=== PATIENT | female | born 1990 | race Caucasian/White ===

== ENCOUNTER 2016-04-17 14:47 | Emergency (ER) | END 2016-04-17 17:53 | disposition home or self-care (01) | DX: R11.10 Vomiting, unspecified (principal); Z33.1 Pregnant state, incidental | CPT/HCPCS: 81003; Z7502; Z7610 ==

== ENCOUNTER 2016-04-27 10:12 | Emergency (ER) | payer OTHER ==
[~2016-04-27] VITALS: Wt 63.5 kg
[~2016-04-27 10:12] MED LIST: METO10TA92 PO; OMEP20CA9 PO; PRENAT PO
[2016-04-27] MEDS ORDERED: METOCLOPRAMIDE 10 MG TAB PO ONE (11:00)
[2016-04-27 11:30] LABS: URINE BLOOD (Dip) POC Negative (NEGATIVE)
--- NOTE | 2016-04-27 11:50 | RADRPT ---
PROCEDURE: US Pelvis/OB. CLINICAL INDICATION: Pelvic pain TECHNIQUE: Multiple sonographic images of the pelvis were obtained utilizing a transabdominal and endovaginal technique. The images were reviewed on a PACS workstation. COMPARISON: None. FINDINGS: There is a small cystic structure within the endometrium measuring 1.6 cm which would correspond to a calculated gestational age of 6 weeks and 2 days. No pole is yet visualized. There is a yolk sac visualized. The ovaries are normal. No abnormal adnexal masses are present. The right ovary measures 2.7 x 1.6 x 2.1 cm. The left ovary measures 3.8 x 2.2 x 3.1 cm. There is a 2 cm corpus luteum cyst in the left ovary. No significant free fluid is present within the pelvis. RPTAT: AA IMPRESSION: Possible early intrauterine at 6 weeks and 2 days. No pole is yet identified. Close followup ultrasound and hCG is recommended. Left ovarian corpus luteum cyst. .Rodolfo Ely MD, MD Date Time Electronically viewed and signed by .Rodolfo Ely MD, on 04/27/2016 11:50 .S/
[2016-04-27 12:09] LABS: BASOPHILS % 0.2 % (0.0-2.0); EOSINOPHILS % 0.3 % (0.0-7.0); HEMATOCRIT 42.3 % (37.0-47.0); HEMOGLOBIN 14.3 g/dl (12.0-16.0); LYMPHOCYTES # 1.7 10^3/ul (0.8-2.9); MEAN CORPUSCULAR HEMOGLOBIN 30.8 pg (29.0-33.0); MEAN CORPUSCULAR HGB CONC 33.8 g/dl (32.0-37.0); MEAN CORPUSCULAR VOLUME 91.1 fl (82.0-101.0); MEAN PLATELET VOLUME 9.4 fl (7.4-10.4); MONOCYTE # 0.8 10^3/ul (0.3-0.9); MONOCYTES % 7.4 % (0.0-11.0); NEUTROPHIL # 8.2 10^3/ul (1.6-7.5); NEUTROPHILS % 76.1 % (39.0-77.0); PLATELET COUNT 206 10^3/UL (140-440); RED BLOOD COUNT 4.65 10^6/ul (4.20-5.40); RED CELL DISTRIBUTION WIDTH 12.9 % (11.5-14.5); UNCORRECTED WBC 10.8 10^3/ul (4.8-10.8); WHITE BLOOD COUNT 10.8 10^3/ul (4.8-10.8)
[2016-04-27 12:14] LABS: CONDITION 1
[2016-04-27] MEDS ORDERED: METO10TA92 PO (12:55)
[2016-04-27] MEDS ORDERED: CEPH-443 PO (12:55)
--- NOTE | 2016-04-27 13:00 | ERD ---
ER Documentation Chief Complaint Date/Time DATE: 04/27/16 TIME: 12:57 Chief Complaint lower abdominal pain with dysuria but no vag bleeed. 8 wks preg. nausea HPI Patient is a 26-year-old female who is approximately 8 weeks complaining of lower pelvic pain that is 8 out of 10 and intermittent. She also admits to dysuria and increased urinary frequency. She denies any hematuria or vaginal bleeding. She does admit to nausea but no vomiting. Denies fever. She has not yet had any OB care but does have an upcoming appointment. She is taking vitamins. ROS All systems reviewed and are negative except as per history of present illness. Medications Home Meds Active Scripts Metoclopramide* (Reglan*) 10 Mg Tablet, 10 MG PO Q6 Y for NAUSEA AND/OR VOMITING , #15 TAB Prov:SCOTTIE POTTS PA-C 04/27/16 Cephalexin* (Keflex*) 500 Mg Capsule, 500 MG PO BID for 5 Days, CAP Prov:SCOTTIE POTTS PA-C 04/27/16 Multivit/Min/Fol Ac/Iron/Pren* ( S*) 1 Tab Tab, 1 TAB PO DAILY, #90 TAB Prov:ZEINA MENA MD 04/17/16 Metoclopramide* (Reglan*) 10 Mg Tablet, 10 MG PO Q6 Y for NAUSEA AND/OR VOMITING , #15 TAB Prov:ZEINA MENA MD 04/17/16 Omeprazole* (Prilosec*) 20 Mg Capsule.dr, 20 MG PO BID for 20 Days, CAP Prov:MARIZA LEBRON NP 08/19/15 Allergies Allergies: Coded Allergies: No Known Allergy (Unverified , 04/17/16) PMhx/Soc History of Surgery: No Anesthesia Reaction: No Hx Neurological Disorder: No Hx Respiratory Disorders: No Hx Cardiac Disorders: No Hx Psychiatric Problems: No Hx Miscellaneous Medical Probl: No Hx Alcohol Use: No Hx Substance Use: No Hx Tobacco Use: No Smoking Status: Never smoker FmHx Family History: No diabetes Physical Exam Vitals Vital Signs Date Time Temp Pulse Resp B/P Pulse Ox O2 Delivery O2 Flow Rate FiO2 04/27/16 10:26 98.6 86 20 140/85 99 Physical Exam General: well developed, well nourished, alert, nontoxic, no distress Head: normocephalic, atraumatic Neck: Supple, nontender, no lymphadenopathy, no midline tenderness Respiratory: Clear to auscaultation bilaterally, speaks in full sentences, no use of accesory muscles or labored breathing, no rales, ronchi, or wheezing Cardiovascular: RRR, No murmurs GI: soft, non tender, non distended, negative murphys sign, negative mcburneys point tenderness, no cva tenderness bilaterally, no rebound or guarding Back: no midline tenderness, no step offs or bony abnormalities, sensation to light touch in tact Result Diagram: 04/27/16 1145 Results 24 hrs Laboratory Tests Test 04/27/16 11:32 04/27/16 11:45 Bedside Urine Blood Negative Bedside Urine Glucose (UA) Negative Bedside Urine Ketones (LAB) Negative Bedside Urine Leukocyte Esterase (L Negative Bedside Urine Nitrite (LAB) Negative Bedside Urine Protein (LAB) Trace Bedside Urine pH (LAB) 7.5 Basophils # 0.010^3/ul Basophils % 0.2% Eosinophils # 0.010^3/ul Eosinophils % 0.3% Hematocrit 42.3% Hemoglobin 14.3g/dl Lymphocytes # 1.710^3/ul Lymphocytes % 16.0% Mean Corpuscular Hemoglobin 30.8pg Mean Corpuscular Hemoglobin Concent 33.8g/dl Mean Corpuscular Volume 91.1fl Mean Platelet Volume 9.4fl Monocytes # 0.810^3/ul Monocytes % 7.4% Neutrophils # 8.210^3/ul Neutrophils % 76.1% Nucleated Red Blood Cells # 0.010^3/ul Nucleated Red Blood Cells % 0.0/100WBC Platelet Count 93349^3/UL Red Blood Count 4.6510^6/ul Red Cell Distribution Width 12.9% White Blood Count 10.810^3/ul Current Medications Medications (Trade) Dose Ordered Sig/Bindu Route PRN Reason Start Time Stop Time Status Last Admin Dose Admin Metoclopramide HCl (Reglan) 10 mg ONCE ONCE PO 04/27/16 11:00 04/27/16 11:02 DC 04/27/16 12:02 Procedures/MDM Patient is 26-year-old female who is for the first time and has dysuria and lower abdominal pain. Her vital signs are all within normal limits and she is well-appearing in no distress. Patient's workup is unremarkable and her urine is negative for infection however given she is symptomatic I will still treat her with Keflex for 5 days. Ultrasound showed possible early intrauterine about 6 weeks and 2 days no pole is yet identified and close follow-up with ultrasound and hCG correlation is recommended. Patient was given copies of her labs and ultrasound reports she can follow primary care doctor and recommended she return in 2-3 days for follow-up examination as ectopic cannot fully be excluded at this time. She is discharged with Reglan and Keflex. Recommended this patient follow up with her primary care doctor within 48 hours or return to the emergency room for any worsening of symptoms. However this time I do believe there is suitable for outpatient management. I answered all their questions and they agreed with the plan and were discharged home. Departure Diagnosis: Primary Impression: Dysuria Additional Impression: Pelvic pain affecting Condition: Stable Patient Instructions: Dysuria, , Established, Normal Symptoms Additional Instructions: Call your primary care doctor TOMORROW for an appointment during the next 1-2 days.See the doctor sooner or return here if your condition worsens before your appointment time. SCOTTIE POTTS PA-C Apr 27, 2016 13:00
== END 2016-04-27 13:22 | disposition home or self-care (01) ==
LOC: FTE 10:12
DX: O26.891 Other specified pregnancy related conditions, first trimester (principal); O99.89 Other specified diseases and conditions complicating pregnancy, childbirth and the puerperium; R30.0 Dysuria; R10.2 Pelvic and perineal pain; Z3A.01 Less than 8 weeks gestation of pregnancy
CPT/HCPCS: 36415; 76801; 76817; 81003; 84702; 85025; 86900; 86901; Z7502; Z7610

== ENCOUNTER 2016-07-23 19:52 | Emergency (ER) | payer OTHER ==
[~2016-07-23] VITALS: Ht 170.2 cm; Wt 63.8 kg
[~2016-07-23 19:52] MED LIST changes: +CEPH-443 PO
[2016-07-23 20:57] VITALS: Ht 170.2 cm; Wt 63.8 kg
[2016-07-23] MEDS ORDERED: ACETAMINOPHEN 500 MG TAB PO STA (23:13)
[2016-07-23 23:50] LABS: ADD SCAN DIFF NO
[2016-07-23 23:51] LABS: BASOPHILS % 0.3 % (0.0-2.0); EOSINOPHILS # 0.1 10^3/ul (0.0-0.5); EOSINOPHILS % 0.9 % (0.0-7.0); HEMATOCRIT 36.3 % (37.0-47.0); HEMOGLOBIN 12.5 g/dl (12.0-16.0); LYMPHOCYTES # 2.3 10^3/ul (0.8-2.9); LYMPHOCYTES % 17.3 % (15.0-51.0); MEAN CORPUSCULAR HEMOGLOBIN 31.2 pg (29.0-33.0); MEAN CORPUSCULAR HGB CONC 34.4 g/dl (32.0-37.0); MEAN CORPUSCULAR VOLUME 90.5 fl (82.0-101.0); MONOCYTE # 0.7 10^3/ul (0.3-0.9); MONOCYTES % 5.1 % (0.0-11.0); NEUTROPHIL # 10.2 10^3/ul (1.6-7.5); NEUTROPHILS % 75.9 % (39.0-77.0); PLATELET COUNT 211 10^3/UL (140-415); RED BLOOD COUNT 4.01 10^6/ul (4.20-5.40); WHITE BLOOD COUNT 13.5 10^3/ul (4.8-10.8)
[2016-07-24 00:10] LABS: ALBUMIN 3.9 g/dl (3.3-4.9); ALBUMIN/GLOBULIN RATIO 1.11; BILIRUBIN,INDIRECT 0.2 mg/dl (0-1.1); BILIRUBIN,TOTAL 0.2 mg/dl (0.2-1.3); CALCIUM 9.1 mg/dl (8.4-10.2); CREATININE 0.51 mg/dl (0.44-1.00); POTASSIUM 3.7 mmol/L (3.5-5.1); TOTAL PROTEIN 7.4 g/dl (6.1-8.1)
[2016-07-24 00:20] LABS: ADD UMIC YES; URINE BILIRUBIN (Dip) NEGATIVE (NEGATIVE); URINE BLOOD (Dip) NEGATIVE (NEGATIVE); URINE COLOR LT. YELLOW (YELLOW); URINE GLUCOSE (Dip) NEGATIVE (NEGATIVE); URINE KETONES (Dip) NEGATIVE (NEGATIVE); URINE LEUKOCYTE ESTERASE (Dip) 2+ (NEGATIVE); URINE NITRITE (Dip) NEGATIVE (NEGATIVE); URINE TOTAL PROTEIN (Dip) NEGATIVE (NEGATIVE); URINE UROBILINOGEN (Dip) 0.2 E.U./dL (0.1-1.0)
--- NOTE | 2016-07-24 00:30 | RADRPT ---
PROCEDURE: US OB. US OB Transabd 04/27 Tri CLINICAL INDICATION: pelvic/ AB pain TECHNIQUE: Multiple sonographic images of the pelvis were obtained. The images were reviewed on a PACS workstation. COMPARISON: No prior studies are available for comparison. FINDINGS: There is a single viable intrauterine gestation. Cardiac activity is present with 148 beats per min malina. There is a variable presentation. Measurements were made in order to determine age. The results are as follows: BPD =4.6 cm. HC =16.5 cm. AC =14.1 cm. FL =3.0 cm. Estimated gestational age of approximately 19 weeks and 3 days. The estimated date of delivery is 12/14/2016. The EFW = 287 grams . The placenta is posterior, grade 0. There is no evidence for an abruption or placenta previa. There is a normal amount of amniotic fluid with a maximum vertical pocket = 3.9 cm There are no adnexal masses. IMPRESSION: Single viable intrauterine gestation of approximately 19 weeks and 3 days. The estimated date of de livery is 12/14/2016. RPTAT: HBST . .Farzad Gutiérrez MD, Date Time Electronically viewed and signed by .Farzad Gutiérrez MD, on 07/24/2016 00:30 .T/
--- NOTE | 2016-07-24 00:42 | ERD ---
ER Documentation Chief Complaint Date/Time DATE: 07/24/16 TIME: 00:38 Chief Complaint C/O LOW BACK PAIN AND AP X4 HRS. DENIES N/V DIARRHEA +LANGFORD HPI This is a 26-year-old female who presents to the emergency department today complaining of low back pain as well as some lower abdominal pain for the past 4 hours. States that she is approximately 18 weeks . States that she does have some burning with urination. Denies any vaginal discharge, vaginal bleeding, fevers or chills, nausea or vomiting. States she has not taken any medication for the pain. Dates her last ultrasound was at the end of May. States that her provider is [facility] and has an appointment on August 07. ROS All systems reviewed and are negative except as per history of present illness. Medications Home Meds Active Scripts Nitrofurantoin Monohyd Macrocr* (Macrobid*) 100 Mg Capsr, 100 MG PO BID for 7 Days, CAP Prov:JOSE G ASHTON PA-C 07/24/16 Acetaminophen* (Tylophen*) 500 Mg Capsule, 1 CAP PO Q6H Y for PAIN AND OR ELEVATED TEMP, #30 CAP Prov:JOSE G ASHTON PA-C 07/24/16 Metoclopramide* (Reglan*) 10 Mg Tablet, 10 MG PO Q6 Y for NAUSEA AND/OR VOMITING , #15 TAB Prov:SCOTTIE POTTS PA-C 04/27/16 Cephalexin* (Keflex*) 500 Mg Capsule, 500 MG PO BID for 5 Days, CAP Prov:SCOTTIE POTTS PA-C 04/27/16 Multivit/Min/Fol Ac/Iron/Pren* ( S*) 1 Tab Tab, 1 TAB PO DAILY, #90 TAB Prov:ZEINA MENA MD 04/17/16 Metoclopramide* (Reglan*) 10 Mg Tablet, 10 MG PO Q6 Y for NAUSEA AND/OR VOMITING , #15 TAB Prov:ZEINA MENA MD 04/17/16 Omeprazole* (Prilosec*) 20 Mg Capsule.dr, 20 MG PO BID for 20 Days, CAP Prov:MARIZA LEBRON NP 08/19/15 Allergies Allergies: Coded Allergies: No Known Allergy (Unverified , 07/23/16) PMhx/Soc Medical and Surgical Hx: pt denies Medical Hx, pt denies Surgical Hx History of Surgery: No Anesthesia Reaction: No Hx Neurological Disorder: No Hx Respiratory Disorders: No Hx Cardiac Disorders: No Hx Psychiatric Problems: No Hx Miscellaneous Medical Probl: No Hx Alcohol Use: No Hx Substance Use: No Hx Tobacco Use: No Smoking Status: Never smoker Physical Exam Vitals Vital Signs Date Time Temp Pulse Resp B/P Pulse Ox O2 Delivery O2 Flow Rate FiO2 07/23/16 20:57 98.2 61 22 111/56 100 Physical Exam Const: No acute distress Head: Atraumatic Eyes: Normal Conjunctiva ENT: Normal External Ears, Nose and Mouth. Neck: Full range of motion..~ No meningismus. Resp: Clear to auscultation bilaterally Cardio: Regular rate and rhythm, no murmurs Abd: Soft, mild bilateral pelvic tenderness non distended. Normal bowel sounds no specific tenderness in the right lower quadrant or at Skin: No petechiae or rashes Back: No midline tenderness. Bilateral paraspinal tenderness. No CVA tenderness peer Ext: No cyanosis, or edema Neur: Awake and alert Psych: Normal Mood and Affect Result Diagram: 07/23/16 2339 07/23/16 2339 Results 24 hrs Laboratory Tests Test 07/23/16 23:39 07/23/16 23:46 White Blood Count 13.510^3/ul Red Blood Count 4.0110^6/ul Hemoglobin 12.5g/dl Hematocrit 36.3% Mean Corpuscular Volume 90.5fl Mean Corpuscular Hemoglobin 31.2pg Mean Corpuscular Hemoglobin Concent 34.4g/dl Red Cell Distribution Width 13.0% Platelet Count 80699^3/UL Mean Platelet Volume 11.0fl Neutrophils % 75.9% Lymphocytes % 17.3% Monocytes % 5.1% Eosinophils % 0.9% Basophils % 0.3% Nucleated Red Blood Cells % 0.0/100WBC Neutrophils # 10.210^3/ul Lymphocytes # 2.310^3/ul Monocytes # 0.710^3/ul Eosinophils # 0.110^3/ul Basophils # 0.010^3/ul Nucleated Red Blood Cells # 0.010^3/ul Sodium Level 136mmol/L Potassium Level 3.7mmol/L Chloride Level 107mmol/L Carbon Dioxide Level 24mmol/L Anion Gap 9 Blood Urea Nitrogen 5mg/dl Creatinine 0.51mg/dl Glucose Level 90mg/dl Calcium Level 9.1mg/dl Total Bilirubin 0.2mg/dl Direct Bilirubin 0.00mg/dl Indirect Bilirubin 0.2mg/dl Aspartate Amino Transf (AST/SGOT) 25IU/L Alanine Aminotransferase (ALT/SGPT) 37IU/L Alkaline Phosphatase 71IU/L Total Protein 7.4g/dl Albumin 3.9g/dl Globulin 3.50g/dl Albumin/Globulin Ratio 1.11 Beta HCG, Quantitative 74808.0mIU/ml Urine Color LT. YELLOW Urine Clarity SLIGHTLY CLOUDY Urine pH 6.0 Urine Specific [place] 1.025 Urine Ketones NEGATIVE Urine Nitrite NEGATIVE Urine Bilirubin NEGATIVE Urine Urobilinogen 0.2 E.U./dL Urine Leukocyte Esterase 2+ Urine Microscopic RBC NONE SEEN/HPF Urine Microscopic WBC 25-50/HPF Urine Squamous Epithelial Cells MODERATE Urine Bacteria MODERATE Urine Hemoglobin NEGATIVE Urine Glucose NEGATIVE% Urine Total Protein NEGATIVE Current Medications Medications (Trade) Dose Ordered Sig/Bindu Route PRN Reason Start Time Stop Time Status Last Admin Dose Admin Acetaminophen (Tylenol Tab) 500 mg ONCE STAT PO 07/23/16 23:13 07/23/16 23:18 DC 07/23/16 23:41 DIAGNOSTIC IMAGING REPORT Patient: JUNE CARDOZA : 1990 Age: 26 Sex: F MR #: [id number] DOS: 07/23/16 0000 Ordering MD: JOSE G ASHTON PA-C Location: E Room/Bed: PROCEDURE: US OB. US OB Transabd / Tri CLINICAL INDICATION: pelvic/ AB pain TECHNIQUE: Multiple sonographic images of the pelvis were obtained. The images were reviewed on a PACS workstation. COMPARISON: No prior studies are available for comparison. FINDINGS: There is a single viable intrauterine gestation. Cardiac activity is present with 148 beats per minute. There is a variable presentation. Measurements were made in order to determine age. The results are as follows: BPD = 4.6 cm. HC = 16.5 cm. AC = 14.1 cm. FL = 3.0 cm. Estimated gestational age of approximately 19 weeks and 3 days. The estimated date of delivery is 12/14/2016. The EFW = 287 grams . The placenta is posterior, grade 0. There is no evidence for an abruption or placenta previa. There is a normal amount of amniotic fluid with a maximum vertical pocket = 3.9 cm There are no adnexal masses. IMPRESSION: Single viable intrauterine gestation of approximately 19 weeks and 3 days. The estimated date of delivery is 12/14/2016. RPTAT: HBST . .Farzad Gutiérrez MD, MD Date Time Electronically viewed and signed by .Farzad Gutiérrez MD, on 07/24/2016 00:30 .T/ CC: JOSE G ASHTON PA-C Procedures/MDM This is a 26-year-old male who presents to the emergency department today complaining of low back pain and lower abdominal pain for the past couple of hours. On physical exam patient describes a bandlike pelvic pain along her lower abdomen as well as bandlike low back pain. Patient does not have any trauma and he did not feel that she requires imaging at this time. She is afebrile and otherwise well-appearing. Low suspicion for cauda equina or abscess. Low suspicion for acute fracture dislocation. However given patient is 18 weeks I did do a complete OB workup Laboratory work shows a mildly elevated white blood cell count of 13.5. She is not anemic. Platelet are within normal limits. Electrolytes are within normal limits. Glucose within normal limits. Liver functions within normal limits. UA shows 2+ leukocyte Estrace. Rh status O+ Beta quant hCG 93053.0 Second trimester ultrasound shows a single viable intrauterine gestation of approximately 19 weeks and 3 days. Estimated date of delivery is 12/14/2016. There is no evidence for abruption or placenta previa. There is a normal amount of amniotic fluid. There are no adnexal masses. Cardiac activity is present within 148 bpm. Patient has no nausea or vomiting. She is afebrile. She is no specific tenderness in her right upper quadrant or right lower quadrant and I do not feel that she requires further laboratory workup or imaging at this time. Low suspicion for acute surgical abdomen. Patient symptoms at this time appear most consistent with related back and pelvic pain as well as urinary tract infection. Patient has no CVA tenderness and she is afebrile. She does have 25-50 microscopic white blood cells however low suspicion for pyelonephritis or nephrolithiasis. She has no vaginal bleeding and I have low suspicion for ectopic , tubal ovarian abscess, ovarian torsion. She was given Tylenol here in the emergency department. She will be given a prescription of Tylenol for home as well as Macrobid. At this time the patient is stable for discharge and outpatient management. Patient should follow up with their PCP in the next 1-2 days. They may return to the emergency department sooner for any persistent or worsening of symptoms. Patient understood and agreed with the plan. Departure Diagnosis: Primary Impression: Pelvic pain during Additional Impression: UTI (urinary tract infection) Urinary tract infection type: site unspecified Hematuria presence: without hematuria Qualified Code: N39.0 - Urinary tract infection without hematuria, site unspecified Condition: JOSE G Smith PA-C July 24, 2016 00:42
[2016-07-24 00:45] LABS: BACTERIA,URINE MODERATE; SQUAMOUS EPITHELIAL CELL,UR MODERATE; URINE RBCS NONE SEEN /HPF (0)
[2016-07-24] MEDS ORDERED: NITR-58 PO (01:24)
[2016-07-24] MEDS ORDERED: ACET500C5 PO (01:24)
[2016-07-24 01:41] VITALS: BP 108/62; PULSE 64; RESP 16
== END 2016-07-24 01:42 | disposition home or self-care (01) ==
LOC: FTE 19:52
DX: O26.892 Other specified pregnancy related conditions, second trimester (principal); R10.2 Pelvic and perineal pain; O23.42 Unspecified infection of urinary tract in pregnancy, second trimester; Z3A.18 18 weeks gestation of pregnancy
CPT/HCPCS: 76805; 80053; 81001; 81003; 84702; 85025; 86900; 86901; Z7610; 36415

== ENCOUNTER 2018-11-06 11:24 | Outpatient (CLI) | payer OTHER ==
[~2018-11-06] VITALS: Ht 170.2 cm; Wt 83.2 kg
[~2018-11-06 11:24] MED LIST changes: +ACET500C5 PO; +NITR-58 PO
[2018-11-06 12:44] VITALS: Ht 170.2 cm; Wt 83.2 kg
[2018-11-06 12:45] VITALS: BP 115/59; PULSE 81; RESP 18
--- NOTE | 2018-11-06 14:29 | PN ---
Triage Information Date/Time November 06, 2018 Reason for visit: R/o PPROM Weeks of Gestation 33 weeks and 4 days /Para 2 para 1 Diabetes: none Hypertention: none Additional information 28-year-old G2, P1 with IUP at 33 weeks and 4 days and twin presented for rule out SROM. patient was seen in clinic and complained of spontaneous leaking of fluid. She was sent for rule out SROM. Patient denies any contractions or decreased movement. Objective Vital Signs Date Temp Pulse Resp B/P (MAP) Pulse Ox O2 O2 Flow FiO2 Time Delivery Rate 11/06/18 98.4 81 18 115/59 12:45 (77) Heart Rate: 130's Contractions: None Exam General appearance: Alert and oriented x4 does not appear to be in any acute distress Abdomen: Soft, gravid, fundal height larger than gestational age consistent with twin NST; Cat 1 for both Babies Assessment: Examination nitrazine negative, R OM test pending: Results/Medications Results 24 hrs Laboratory Tests Test 11/06/18 12:20 Urine Color STRAW Urine Clarity CLEAR Urine pH 6.0 Urine Specific [place] 1.004 Urine Ketones NEGATIVE Urine Nitrite NEGATIVE Urine Bilirubin NEGATIVE Urine Urobilinogen NEGATIVE Urine Leukocyte Esterase TRACE A Urine Microscopic RBC 1 Urine Microscopic WBC 0 Urine Squamous Epithelial Cells FEW Urine Bacteria FEW A Urine Hemoglobin NEGATIVE Urine Glucose NEGATIVE Urine Total Protein NEGATIVE Membranes Rupture NEGATIVE Imaging Results PROCEDURE: US OB biophysical profile. CLINICAL INDICATION: Decreased movements. Possible premature ruptured membranes. TECHNIQUE: Multiple sonographic images of the pelvis were obtained. The images were reviewed on a PACS workstation. COMPARISON: Pelvic ultrasound 11/06/2018 and 10/14/2018 FINDINGS: Twin live intrauterine gestation. A: There is a normal amount of amniotic fluid with Maximal volume pocket = 4.9 cm. Position: Cephalic. Cardiac activity is present with 131 beats per minute. The placenta is anterior. No evidence of placenta previa or abruption. Biophysical profile: movement 2/2 tone 2/2. breathing 2/2 PACO 2/2 Total 10/30 B: There is a normal amount of amniotic fluid with Maximal volume pocket = 5.0 cm. Position: Cephalic. Cardiac activity is present with 137 beats per minute. The placenta is anterior. No evidence of placenta previa or abruption. Biophysical profile: movement 2/2 tone 2/2. breathing 2/2 PACO 2/2 Total 10/30 IMPRESSION: Normal biophysical profile with twin gestation. Estimated gestational age: 33 weeks and 4 days RPTAT:AAJJ Radha Ruby Physician Date Time Electronically viewed and signed by Radha Ruby Physician on 11/06/2018 15:45 MH/ CC: CHILANGO HINOJOSA [phone] Disposition: Discharge Assessment/Plan IUP at 33 weeks and 4 days Twin , no evidence of PPROM No evidence of labor testing reassuring Patient discharged home in stable condition Strict labor precautions kick count and follow-up with primary OB office within 48 hours after discharge from the hospital discussed with patient All questions were answered to patient's best satisfaction Follow-up with perinatology clinic as a scheduled as well as rest of the OB vi sit with the clinic discussed DARIAN BURRIS MD Nov 06, 2018 14:29
--- NOTE | 2018-11-06 17:42 | TRIAGE ---
OB Triage Datetime Report Generated by CPN: 11/06/2018 17:42 Datetime: 11/06/2018 16:59 Stage of : OB Triage Datetime: 11/06/2018 16:39 Labor Evaluation Frequency: 0 Monitor Mode: External Pattern: Normal: <= 5 Contractions in 10 Minutes Resting Tone [place]: Relaxed Heart Rate FHR Baseline Rate: 135 Monitor Mode: External US Variability: Moderate 6-25 bpm Decelerations: None Pain Assessment Pain Scale: 0 Pain Presence: None/Denies Pain Type: N/A Pain Goal: 3 Pain Relief Measures: Comfort Measures Datetime: 11/06/2018 15:33 Labor Evaluation Frequency: 1 Monitor Mode: External Duration (sec)2399: 60 Quality: Mild Pattern: Normal: <= 5 Contractions in 10 Minutes Resting Tone [place]: Relaxed Heart Rate FHR Baseline Rate: 135 Monitor Mode: External US Variability: Moderate 6-25 bpm Accelerations: 10X10 Decelerations: None Category: Category I Pain Assessment Pain Scale: 0 Pain Presence: None/Denies Pain Type: N/A Pain Goal: 3 Pain Relief Measures: Comfort Measures Datetime: 11/06/2018 15:15 Monitor Mode: External Contraction Comments: U/S FINISHED Datetime: 11/06/2018 14:06 Labor Evaluation Frequency: 0 Monitor Mode: External Pattern: Normal: <= 5 Contractions in 10 Minutes Resting Tone [place]: Relaxed Heart Rate FHR Baseline Rate: 130 Monitor Mode: External US Variability: Moderate 6-25 bpm Accelerations: 10X10 Decelerations: None Category: Category I Pain Assessment Pain Scale: 0 Pain Presence: None/Denies Pain Type: N/A Pain Goal: 3 Pain Relief Measures: Comfort Measures Datetime: 11/06/2018 13:16 Stage of : OB Triage Datetime: 11/06/2018 12:21 Stage of : OB Triage Assessment Type: Triage Maternal Assessment Level of Consciousness: Keenly Alert, Responsive DTR's/Clonus: DTRs 2+; No Clonus Headache: Denies Blurred Vision: No Respiratory Effort: Unlabored; Regular Rhythm; Equal Expansion Breath Sounds, Left: Clear and Equal Breath Sounds, Right: Clear and Equal Nausea/Vomiting: Denies RUQ Epigastric Pain: Denies Facial Edema: None Temperature Route: Axillary Fall Risk Assessment History of Falling: (0) No Secondary Diagnosis: (0) No Ambulatory Aid: (0) Bedrest/Nurse Assist IV Therapy: (0) No Gait: (0) Normal/Bedrest/Immobile Mental Status: (0) Oriented to Own Ability Fall Score: 0 Fall Risk Score Definition: No Risk: No action required Labor Evaluation Frequency: 0 Monitor Mode: External Pattern: Normal: <= 5 Contractions in 10 Minutes Resting Tone [place]: Relaxed Heart Rate FHR Baseline Rate: 140 Monitor Mode: External US Variability: Moderate 6-25 bpm Decelerations: None Pain Assessment Pain Scale: 0 Pain Presence: None/Denies Pain Type: N/A Pain Goal: 3 Pain Relief Measures: Comfort Measures Datetime: 11/06/2018 12:19 Time of Arrival: 11/06/2018 11:14 EGA: 33.4 Arrived By: Ambulatory Arrived From: Office Chief Complaint: FROM CLINIC TO R/O PROM, DENIES BLEEDING OR UC'S Movement: Present Contractions: Denies/Absent Rupture of Membranes: Unsure Vaginal Bleeding: None Vaginal Discharge: Present Recent Sexual Intercouse: Denies Abdominal Trauma: Not Applicable Time Provider Notified: 11/06/2018 13:16 Provider Notified: teresa Initial Plan: MONITOR, ROM PLUS, NITRAZINE
== END 2018-11-06 17:24 | disposition home or self-care (01) ==
LOC: OBT 11:24 → L-D 11:25 → OBT 17:24
PROVIDERS: ATTEND Obstetrics & Gynecology
DX: O42.913 Preterm premature rupture of membranes, unspecified as to length of time between rupture and onset of labor, third trimester (principal); Z3A.33 33 weeks gestation of pregnancy
CPT/HCPCS: 76815; 76818; 81001; 84112; 87086; Z7500; G0463

== ENCOUNTER 2018-11-20 16:50 | Outpatient (CLI) | payer OTHER ==
[~2018-11-20] VITALS: Ht 170.2 cm; Wt 84.5 kg
[~2018-11-20 16:50] MED LIST changes: -ACET500C5 PO; +CALC600T24 PO; -CEPH-443 PO; +DOCU-144 PO; +FER325 PO; +IBUP-1542 PO; -METO10TA92 PO; -NITR-58 PO; -OMEP20CA9 PO
[2018-11-20 19:57] VITALS: Ht 170.2 cm; Wt 84.5 kg
[2018-11-20 19:58] VITALS: BP 118/59; PULSE 84; RESP 18
[2018-11-20] MEDS ORDERED: LACTATED RINGER'S 500 ML IV ONE (23:30)
[2018-11-20] MEDS ORDERED: LACTATED RINGER'S 1,000 ML IV SCH (23:30)
== END 2018-11-21 06:29 | disposition home or self-care (01) ==
LOC: OBT 16:50 → L-D 16:52 → OBT 11-21 06:29
PROVIDERS: ATTEND Obstetrics & Gynecology
DX: O36.8130 Decreased fetal movements, third trimester, not applicable or unspecified (principal); Z3A.35 35 weeks gestation of pregnancy
CPT/HCPCS: 36415; 76818; 81001; 84112; 85025; 96360; 96361; J7120; Z7500; 81003; G0463

== ENCOUNTER 2018-11-22 17:08 | Outpatient (CLI) | payer OTHER ==
[2018-11-22] MEDS ORDERED: BETAMET NA PHOS/AC(6 MG/ML) 2 ML INJ SYG IM ONE (17:30)
== END 2018-11-22 18:15 | disposition home or self-care (01) ==
LOC: OBT 17:08 → L-D 17:09 → OBT 18:15
PROVIDERS: ATTEND Obstetrics & Gynecology
DX: O62.9 Abnormality of forces of labor, unspecified (principal); Z3A.35 35 weeks gestation of pregnancy
CPT/HCPCS: 96372; J0702; Z7500; G0463

== ENCOUNTER 2018-11-29 21:13 | Inpatient (IN) | payer OTHER ==
[~2018-11-29] VITALS: Ht 170.2 cm; Wt 87.0 kg
[2018-11-29] MEDS ORDERED: LACTATED RINGER'S 1,000 ML IV PRN (21:25)
[2018-11-29] MEDS ORDERED: OXYTOCIN 30 UNITS/LR 500 ML IV SCH (21:30)
[2018-11-29] MEDS ORDERED: BUTORPHANOL 2 MG INJ IV PRN ×2 (21:30)
[2018-11-29] MEDS ORDERED: IBUPROFEN 600 MG TAB PO PRN (21:30)
[2018-11-29] MEDS ORDERED: AMPICILLIN 2 GM/NS (PMX) 100 ML IV ONE (21:30)
[2018-11-29] MEDS ORDERED: CARBOPROST 250 MCG INJ IM PRN (21:30)
[2018-11-29] MEDS ORDERED: LIDOCAINE 1% (MPF) 30 ML INJ INJ PRN (21:30)
[2018-11-29] MEDS ORDERED: METHYLERGONOVINE 0.2 MG INJ IM PRN (21:30)
[2018-11-29] MEDS ORDERED: CEFAZOLIN 2 GM/50 ML (PMX) 50 ML IVPB SCH (21:30)
[2018-11-29] MEDS ORDERED: OXYTOCIN 30 UNITS/LR 500 ML IV PRN (21:30)
[2018-11-29] MEDS ORDERED: MISOPROSTOL 200 MCG TAB PR PRN (21:30)
[2018-11-29 21:56] VITALS: BP 116/60; PULSE 75; RESP 20
[2018-11-29] MEDS: LACTATED RINGER'S 1,000 ML IV SCH ×2 (22:20→22:25)
[2018-11-29] MEDS ORDERED: CITRIC ACID/NA CITRATE 30 ML CUP ONE (22:24)
[2018-11-29] MEDS ORDERED: CITRIC ACID/NA CITRATE 30 ML CUP PO ONE ×2 (22:30→23:00)
[2018-11-29] MEDS ORDERED: LACTATED RINGER'S 1,000 ML IV ONE (22:38)
[2018-11-29] MEDS ORDERED: morphine SULFATE/PF (10 MG/10 ML) INJ ONE (22:45)
[2018-11-29] MEDS ORDERED: HYDROmorphONE 0.5 MG/0.5 ML SYG IV PRN ×2 (23:00)
[2018-11-29] MEDS ORDERED: DIPHENHYDRAMINE 50 MG INJ IV PRN (23:00)
[2018-11-29] MEDS ORDERED: MIDAZOLAM 1 MG/ML 2 ML INJ IV PRN (23:00)
[2018-11-29] MEDS ORDERED: MEPERIDINE 25 MG INJ IV PRN (23:00)
[2018-11-29] MEDS ORDERED: ZOLPIDEM 5 MG TAB PO PRN (23:00)
[2018-11-29] MEDS ORDERED: NALOXONE (0.4 MG/ML) INJ IV PRN (23:00)
[2018-11-29] MEDS ORDERED: ONDANSETRON 4 MG INJ IV PRN (23:00)
[2018-11-29] MEDS ORDERED: NALBUPHINE HCL (10 MG/1 ML) INJ IV PRN (23:00)
[2018-11-29] MEDS ORDERED: ONDANSETRON 4 MG INJ ONE (23:18)
[2018-11-29] MEDS ORDERED: METOCLOPRAMIDE 10 MG INJ ONE (23:18)
[2018-11-29] MEDS ORDERED: OXYTOCIN 10 UNIT INJ ONE (23:19)
[2018-11-29] MEDS ORDERED: MIDAZOLAM 1 MG/ML 2 ML INJ ONE (23:19)
[2018-11-29] MEDS ORDERED: DIPHENHYDRAMINE 50 MG INJ ONE (23:46)
[2018-11-29] MEDS ORDERED: CEFAZOLIN 1 GM INJ ONE (23:59)
[2018-11-29] MEDS ORDERED: KETOROLAC 30 MG INJ ONE (23:59)
[2018-11-30] MEDS ORDERED: LACTATED RINGER'S 1,000 ML IV SCH (00:23)
[2018-11-30] MEDS ORDERED: MISOPROSTOL 200 MCG TAB PR PRN (00:30)
[2018-11-30] MEDS ORDERED: OXYTOCIN 30 UNITS/LR 500 ML IV PRN (00:30)
[2018-11-30] MEDS ORDERED: METHYLERGONOVINE 0.2 MG INJ IM PRN (00:30)
[2018-11-30] MEDS ORDERED: CARBOPROST 250 MCG INJ IM PRN (00:30)
[2018-11-30] MEDS: DIPHENHYDRAMINE 50 MG INJ IV PRN ×3 (01:02→15:11)
[2018-11-30] MEDS ORDERED: AMPICILLIN 1 GM/NS (PMX) 50 ML IV SCH (01:30)
[2018-11-30] MEDS: OXYTOCIN 30 UNITS/LR 500 ML IV SCH ×2 (02:44→06:39)
[2018-11-30 03:10] VITALS: BP 116/59; PULSE 60; RESP 18
[2018-11-30] MEDS: KETOROLAC 30 MG INJ IV PRN ×3 (06:16→21:59)
[2018-11-30 08:00] VITALS: BP 114/65; PULSE 62; RESP 18
[2018-11-30] MEDS: FERROUS SULFATE (EC) 325 MG TAB PO SCH (10:13)
[2018-11-30] MEDS: ASCORBIC ACID 500 MG TAB PO SCH (10:16)
[2018-11-30] MEDS: LACTATED RINGER'S 1,000 ML IV SCH ×2 (11:31→19:16)
[2018-11-30 12:00] VITALS: BP 114/52; PULSE 61; RESP 18
[2018-11-30] MEDS ORDERED: FERROUS SULFATE (EC) 325 MG TAB PO SCH (13:00)
[2018-11-30] MEDS ORDERED: ASCORBIC ACID 500 MG TAB PO SCH (13:00)
[2018-11-30 16:13] VITALS: BP 115/47; PULSE 69; RESP 16
[2018-11-30 20:00] VITALS: BP 121/67; PULSE 97; RESP 19
[2018-11-30] MEDS ORDERED: OXYCODONE/ACETAMINOPHEN (5/325) TAB PO PRN (22:45)
[2018-11-30] MEDS ORDERED: KETOROLAC 30 MG INJ IV PRN (22:45)
[2018-12-01 04:00] VITALS: BP 122/58; PULSE 77; RESP 20
[2018-12-01] MEDS: LACTATED RINGER'S 1,000 ML IV SCH ×2 (05:25→13:25)
[2018-12-01] MEDS: IBUPROFEN 600 MG TAB PO SCH ×5 (06:59→23:53)
[2018-12-01 08:00] VITALS: BP 121/59; PULSE 84; RESP 18
[2018-12-01] MEDS: FERROUS SULFATE (EC) 325 MG TAB PO SCH (09:28)
[2018-12-01] MEDS: ASCORBIC ACID 500 MG TAB PO SCH (09:29)
[2018-12-01] MEDS: OXYCODONE/ACETAMINOPHEN (5/325) TAB PO PRN ×2 (15:43→21:48)
[2018-12-01 16:15] VITALS: BP 119/58; RESP 18
[2018-12-01] MEDS: LANOLIN HPA 1 PKT TOP PRN (17:25)
[2018-12-01 20:00] VITALS: BP 130/67; PULSE 88; RESP 19
[2018-12-02 04:00] VITALS: BP 121/65; PULSE 79; RESP 19
[2018-12-02] MEDS: IBUPROFEN 600 MG TAB PO SCH ×2 (06:03→11:35)
[2018-12-02 08:00] VITALS: BP 118/62; PULSE 61; RESP 18
[2018-12-02] MEDS: FERROUS SULFATE (EC) 325 MG TAB PO SCH (09:03)
[2018-12-02] MEDS: ASCORBIC ACID 500 MG TAB PO SCH (09:03)
[2018-12-02] MEDS: LANOLIN HPA 1 PKT TOP PRN (11:07)
[2018-12-02] MEDS ORDERED: DIPHTH/TET/ACEL PERTUSS (ADULT) 0.5 ML VIAL IM* ONE (11:50)
[2018-12-03] MEDS ORDERED: MEASLES,MUMPS,RUBELLA VACCINE INJ SC* ONE (09:00)
== END 2018-12-02 15:05 | disposition home or self-care (01) | DRG 785 ==
LOC: OBT 21:13 → L-D 21:15 → OBT 21:20 → L-D 21:20 → PP1 11-30 03:13
PROVIDERS: ADMIT Obstetrics & Gynecology; ATTEND Obstetrics & Gynecology
PROC: 0UT70ZZ Resection of Bilateral Fallopian Tubes, Open Approach (ICD-10-PCS; 2018-11-29)
PROC: 3E033VJ Introduction of Other Hormone into Peripheral Vein, Percutaneous Approach (ICD-10-PCS; 2018-11-29)
PROC: 10D00Z1 Extraction of Products of Conception, Low, Open Approach (ICD-10-PCS; principal; 2018-11-29 23:00)
DX: O60.13X2 Preterm labor second trimester with preterm delivery third trimester, fetus 2 (principal); O30.003 Twin pregnancy, unspecified number of placenta and unspecified number of amniotic sacs, third trimester; Z3A.36 36 weeks gestation of pregnancy; Z37.2 Twins, both liveborn; Z30.2 Encounter for sterilization
CPT/HCPCS: 85025; 85610; 85730; 86592; 86850; 86900; 86901; 87340; 88302; 88307; 90715; 99464; G0463; J0690; J1200; J1885; J2250; J2274; J2405; J2590; J2765; J7120